=== PATIENT | male | born 1970 | race Caucasian/White ===

== ENCOUNTER 2021-06-04 14:49 | Emergency (ER) | payer OTHER | END 2021-06-04 15:19 | disposition home or self-care (01) | LOC: BURERS 14:49 | DX: S70.12XA Contusion of left thigh, initial encounter (principal); W22.8XXA Striking against or struck by other objects, initial encounter | CPT/HCPCS: 99283 ==

== ENCOUNTER 2022-11-09 17:54 | Emergency (ER) | payer OTHER, SELFPAY | END 2022-11-09 19:14 | disposition home or self-care (01) | LOC: BURERS 17:54 | DX: S92.311A Displaced fracture of first metatarsal bone, right foot, initial encounter for closed fracture (principal); W22.09XA Striking against other stationary object, initial encounter ==